=== PATIENT | male | born 1975 | race Caucasian/White ===

== ENCOUNTER → 2020-06-20 13:18 | Outpatient (CLI) | payer OTHER, SELFPAY ==
--- NOTE | 2020-06-20 | DI.MRI.S_ITS ---
PROCEDURE: MR SHOULDER RT W CON INDICATIONS: PAIN IN RIGHT SHOULDER TECHNIQUE: After the administration of 12 mL of dilute intra-articular Gadolinium contrast, oblique coronal T1 and T2 spin echo with fat saturation, oblique sagittal T1 spin echo with and without fat saturation, oblique sagittal T2 fast spin echo with fat saturation, axial T1 spin echo with fat saturation through the shoulder. COMPARISON: None. FINDINGS: Image quality: Excellent. Rotator cuff: Mild supraspinatus tendinopathy. Low-grade bursal surface fraying at the footprint. Teres minor and infraspinatus tendons appear intact. Post-injection sequela seen in the subscapularis tendon. No atrophy of the rotator cuff muscles. Bones and bursae: No bone marrow contusions or fractures. Severe marrow edema seen at the AC joint, as well as periarticular soft tissue edema. Of note the inferior AC ligament is not well visualized. Coracoclavicular ligament appears grossly intact. Acromion demonstrates conventional anatomy, without an os acromiale. Capsule and soft tissues: Labrum: Amorphous enlargement of the anteroinferior labrum without intrasubstance gadolinium signal intensity. Remainder of the labrum appears grossly intact.. Long head of the biceps tendon intact. The rotator interval appears normal, without fibrosis. Coracohumeral ligament intact. IMPRESSION: Mild supraspinatus tendinopathy with low-grade bursal surface fraying at the footprint. Elsewhere, no discrete rotator cuff tear Severe marrow and soft tissue edema at the acromioclavicular joint. This suggests posttraumatic etiology, and rupture of the inferior acromioclavicular ligament. No definite AC joint interval widening. The coracoclavicular ligament appears intact. Background chronic degenerative changes may be present. Hypertrophic appearance of the anteroinferior labrum with amorphous signal changes raising the possibility of chronic tear with subsequent fibrosis and scarring. Dictated by: Haja Chen M.D. on 06/20/2020 at 16:47 Approved by: Haja Chen M.D. on 06/20/2020 at 16:55
--- NOTE | 2020-06-20 | DI.RAD.S_ITS ---
PROCEDURE: FL SHOULDER INJECTION MR/CT RT INDICATIONS: PAIN IN RIGHT SHOULDER TECHNIQUE: The indications, alternatives, benefits, risks, and complications of the procedure were explained to the patient. Written informed consent was obtained and placed in the chart. The shoulder was examined fluoroscopically and a site for needle placement chosen for entry into the glenohumeral joint from an anterior approach. The skin was prepped and draped in a sterile fashion, and 1% lidocaine infiltrated from skin down to joint capsule. A spinal needle was inserted into the glenohumeral joint, and a small amount of iodinated contrast media injected to confirm intra-articular placement of the needle tip. This was followed by approximately 12 mL dilute solution of a gadolinium containing MR contrast agent. The needle was removed and a dressing was applied. The patient was given postprocedural instructions and sent to the MR suite for MR imaging. FINDINGS: A single fluoroscopic spot image demonstrates intra-articular location of injected iodinated contrast. IMPRESSION: Successful fluoroscopically guided administration of dilute Gadolinium solution into the shoulder joint for MR arthrogram. Dictated by: Steven Zacarias M.D. on 06/20/2020 at 15:16 Approved by: Steven Zacarias M.D. on 06/20/2020 at 15:16
== END ==
DX: M25.511 Pain in right shoulder (principal); R60.0 Localized edema
CPT/HCPCS: 23350; 73222; 77002